=== PATIENT | male | born 1990 | race Caucasian/White ===

== ENCOUNTER 2022-03-10 19:43 | Inpatient (IN) ==
[2022-03-10 20:19] LABS: Bilirubin,Urine Negative (Negative); Blood,Urine Negative (Negative); Clarity,Urine Clear (Clear); Color,Urine Light-Yellow (Yellow); Glucose,Urine (UA) Normal (Normal); Ketones,Urine Negative (Negative); Leukocyte Esterase,Urine Negative (Negative); Nitrite,Urine Negative (Negative); PH,Urine 7.5 pH Units (5.0-8.0); Protein,Urine Trace mg/dL (Neg-Trace); Specific Gravity,Urine 1.023 (1.010-1.025); Urobilinogen,Urine Normal (Normal)
[2022-03-10 20:21] LABS: Basophils # 0.1 K/mcL (0.0-0.2); Basophils % 0.5 %; Eosinophils # 0.6 K/mcL (0.0-0.6); Eosinophils % 2.7 %; Hemoglobin 14.6 g/dL (12.9-16.9); Immature Granulocytes % 0.9 % (0-4); Lymphocytes # 4.6 K/mcL (0.6-4.6); Lymphocytes % 19.9 %; Mean Corpuscular HGB Conc 32.4 g/dL (31.6-35.5); Mean Corpuscular Volume 83.3 fL (83.0-100.0); Mean Platelet Volume 9.1 fL (9.4-12.4); Monocytes # 1.5 K/mcL (0.0-1.3); Monocytes % 6.3 %; Neutrophils # 16.1 K/mcL (1.6-8.9); Platelet Count 394 K/mcL (140-400); Segmented Neutrophils % 69.7 %; White Blood Count 23.1 K/mcL (4.3-11.1)
[2022-03-10 20:30] LABS: Amphetamine Screen,Urine Negative ng/mL (Cutoff=1000); Barbiturate Screen,Urine Negative ng/mL (Cutoff=200); Benzodiazepines Screen,Urine Negative ng/mL (Cutoff=200); Cannabinoid Screen,Urine Negative ng/mL (Cutoff = 50); Cocaine Screen,Urine Negative ng/mL (Cutoff= 300); Opiate Screen,Urine Negative ng/mL (Cutoff=300); Phencyclidine Screen,Urine Negative ng/mL (Cutoff=25)
[2022-03-10 20:40] LABS: Acetaminophen < 10 mcg/mL (10-20); BUN/Creatinine Ratio 14 (6-26); Blood Urea Nitrogen 12 mg/dL (6-20); Calcium 9.7 mg/dL (8.6-10.3); Carbon Dioxide 27 mEq/L (23-29); Chloride 106 mEq/L (98-107); Ethanol < 10 mg/dL (Less than 10); Glucose 102 mg/dL (70-105); Osmolality,Calculated 292 (280-300); Potassium 4.1 mEq/L (3.5-5.1); Salicylate < 2.5 mg/dL (15.0-30.0); Sodium 141 mEq/L (136-145); eGFR For African Americans > 60 (> 60); eGFR For Non-African Americans > 60 (> 60)
[2022-03-10 20:42] LABS: Platelet Estimate Normal (Normal)
[2022-03-10 20:54] LABS: Influenza A PCR Negative (Negative); Influenza B PCR Negative (Negative); Resp. Syncytial Virus PCR Negative (Negative); SARS-CoV-2 by PCR (In House) Negative (Negative)
[2022-03-10] MEDS ORDERED: hydrOXYzine pamoate 25 MG CAPSULE PO ONE (21:45)
[2022-03-11] MEDS ORDERED: traZODone 50 MG TABLET PO PRN (00:35)
[2022-03-11] MEDS ORDERED: Ibuprofen 400 MG TABLET PO PRN (00:35)
[2022-03-11] MEDS ORDERED: OLANZapine 10 MG VIAL IM PRN (00:37)
[2022-03-11] MEDS ORDERED: OLANZapine 10 MG TAB.RAPDIS PO PRN (00:38)
[2022-03-11] MEDS: Melatonin 3 MG TABLET PO SCH ×2 (01:08→20:58)
[2022-03-11] MEDS: Gabapentin 400 MG CAPSULE PO SCH ×5 (01:09→20:58)
[2022-03-11] MEDS: Desvenlafaxine Succinate [Pristiq] 25 MG Tab.Er.24h PO SCH ×2 (01:44→21:09)
[2022-03-11] MEDS: Nicotine 21 MG PATCH.TD24 TD SCH ×2 (01:50→08:13)
[2022-03-11] MEDS: hydrOXYzine pamoate 25 MG CAPSULE PO PRN ×2 (01:50→08:15)
[2022-03-11 08:04] LABS: Basophils # 0.1 K/mcL (0.0-0.2); Basophils % 0.5 %; Eosinophils # 0.6 K/mcL (0.0-0.6); Eosinophils % 4.5 %; Hematocrit 41.5 % (37.5-50.1); Hemoglobin 13.4 g/dL (12.9-16.9); Immature Granulocytes % 0.6 % (0-4); Lymphocytes # 2.5 K/mcL (0.6-4.6); Lymphocytes % 18.5 %; Mean Corpuscular HGB Conc 32.3 g/dL (31.6-35.5); Mean Corpuscular Hemoglobin 26.6 pg (28.0-33.3); Mean Corpuscular Volume 82.3 fL (83.0-100.0); Mean Platelet Volume 8.8 fL (9.4-12.4); Monocytes # 0.7 K/mcL (0.0-1.3); Monocytes % 5.4 %; Neutrophils # 9.4 K/mcL (1.6-8.9); Platelet Count 317 K/mcL (140-400); Red Blood Count 5.04 M/mcL (4.19-5.50); Red Cell Distribution Width 15.9 % (11.5-14.5); Segmented Neutrophils % 70.5 %; White Blood Count 13.2 K/mcL (4.3-11.1)
[2022-03-11] MEDS: Multivit/Ca/Min/Fe/FA 1 TAB TABLET PO SCH (08:13)
[2022-03-11] MEDS: Nicotine 2 MG GUM BC PRN ×3 (10:42→16:51)
[2022-03-11] MEDS ORDERED: OLANZapine 10 MG TAB.RAPDIS PO SCH (21:00)
[2022-03-12] MEDS: Gabapentin 400 MG CAPSULE PO SCH ×2 (08:19→12:26)
[2022-03-12] MEDS: Nicotine 21 MG PATCH.TD24 TD SCH (08:19)
[2022-03-12] MEDS: Multivit/Ca/Min/Fe/FA 1 TAB TABLET PO SCH (08:19)
[2022-03-12] MEDS: Nicotine 2 MG GUM BC PRN ×2 (08:24→12:27)
[2022-03-12 08:56] VITALS: BP 120/85; PULSE 114; TEMP 97.5; O2SAT 98
== END 2022-03-12 15:25 | disposition home or self-care (01) | DRG 753 ==
LOC: EMEROOARM 19:43 → 1ANU 03-11 00:23
PROVIDERS: ADMIT Psychiatry & Neurology Psychiatry; ATTEND Psychiatry & Neurology Psychiatry